=== PATIENT | male | born 1940 | race Caucasian/White ===

== ENCOUNTER 2017-11-26 21:36 | Inpatient (IN) | payer MEDICARE, OTHER ==
[2017-11-26 22:44] LABS: WHITE BLOOD COUNT 8.4 10^3/ul (4.8-10.8)
[2017-11-26 22:44] LABS: ADD MAN DIFF? NO; BASOPHIL # 0.1 10^3/ul (0.0-0.1); BASOPHILS % 0.6 % (0.0-2.0); EOSINOPHILS # 0.4 10^3/ul (0.0-0.5); EOSINOPHILS % 4.5 % (0.0-7.0); HEMATOCRIT 36.7 % (42.0-52.0); HEMOGLOBIN 11.5 g/dl (14.0-18.0); LYMPHOCYTES # 1.2 10^3/ul (0.8-2.9); LYMPHOCYTES % 14.4 % (15.0-51.0); MEAN CORPUSCULAR HEMOGLOBIN 30.7 pg (29.0-33.0); MEAN CORPUSCULAR HGB CONC 31.3 g/dl (32.0-37.0); MEAN CORPUSCULAR VOLUME 97.9 fl (82.0-101.0); MEAN PLATELET VOLUME 8.8 fl (7.4-10.4); MONOCYTE # 0.8 10^3/ul (0.3-0.9); MONOCYTES % 9.1 % (0.0-11.0); NEUTROPHILS % 70.9 % (39.0-77.0); PLATELET COUNT 194 10^3/UL (140-415); RED BLOOD COUNT 3.75 10^6/ul (4.70-6.10); RED CELL DISTRIBUTION WIDTH 14.6 % (11.5-14.5)
[2017-11-26] MEDS ORDERED: ACETAMINOPHEN 325 MG TAB PO (23:00)
[2017-11-26] MEDS ORDERED: ONDANSETRON 4 MG INJ IV (23:00)
[2017-11-26 23:05] LABS: ALANINE AMINOTRANSFERASE 25 IU/L (13-69); ALBUMIN 3.9 g/dl (3.3-4.9); ALBUMIN/GLOBULIN RATIO 1.39; ALKALINE PHOSPHATASE 61 IU/L (42-121); ANION GAP 15 (8-16); ASPARTATE AMINO TRANSFERASE 23 IU/L (15-46); BLOOD UREA NITROGEN 18 mg/dl (7-20); CALCIUM 9.2 mg/dl (8.4-10.2); CARBON DIOXIDE 27 mmol/L (21-31); CHLORIDE 114 mmol/L (97-110); CREATININE 1.03 mg/dl (0.61-1.24); GLUCOSE 103 mg/dl (70-220); POTASSIUM 4.3 mmol/L (3.5-5.1); SODIUM 152 mmol/L (135-144); TOTAL PROTEIN 6.7 g/dl (6.1-8.1)
[2017-11-26 23:06] LABS: ACETAMINOPHEN < 10.0 ug/ml (10.0-30.0); ETHANOL < 10.0 mg/dl; SALICYLATE < 1.0 mg/dl (5.0-30.0)
[2017-11-27] MEDS: HALOPERIDOL 5 MG INJ IM (01:58)
[2017-11-27] MEDS ORDERED: ACETAMINOPHEN 325 MG TAB PO (05:30)
[2017-11-27] MEDS ORDERED: NACL 0.9% 3 ML SYG IV (05:30)
[2017-11-27] MEDS ORDERED: ALBUTEROL/IPRATROPIUM (NEB) 3 ML AMP HHN (05:30)
[2017-11-27] MEDS ORDERED: ONDANSETRON 4 MG INJ IV (05:30)
[2017-11-27] MEDS ORDERED: ZOLPIDEM 5 MG TAB PO (05:30)
[2017-11-27 06:30] LABS: ADD MAN DIFF? NO
[2017-11-27 06:44] LABS: BASOPHILS % 0.8 % (0.0-2.0); EOSINOPHILS # 0.4 10^3/ul (0.0-0.5); EOSINOPHILS % 6.9 % (0.0-7.0); HEMATOCRIT 32.4 % (42.0-52.0); HEMOGLOBIN 10.4 g/dl (14.0-18.0); LYMPHOCYTES # 1.6 10^3/ul (0.8-2.9); LYMPHOCYTES % 29.6 % (15.0-51.0); MEAN CORPUSCULAR HEMOGLOBIN 31.5 pg (29.0-33.0); MEAN CORPUSCULAR HGB CONC 32.1 g/dl (32.0-37.0); MEAN CORPUSCULAR VOLUME 98.2 fl (82.0-101.0); MEAN PLATELET VOLUME 9.3 fl (7.4-10.4); MONOCYTE # 0.6 10^3/ul (0.3-0.9); MONOCYTES % 11.3 % (0.0-11.0); NEUTROPHIL # 2.7 10^3/ul (1.6-7.5); NEUTROPHILS % 50.8 % (39.0-77.0); PLATELET COUNT 177 10^3/UL (140-415); RED CELL DISTRIBUTION WIDTH 14.5 % (11.5-14.5)
[2017-11-27 06:44] LABS: WHITE BLOOD COUNT 5.3 10^3/ul (4.8-10.8)
[2017-11-27 07:15] LABS: ALANINE AMINOTRANSFERASE 26 IU/L (13-69); ALBUMIN 3.2 g/dl (3.3-4.9); ALBUMIN/GLOBULIN RATIO 1.23; ALKALINE PHOSPHATASE 57 IU/L (42-121); ANION GAP 10 (8-16); ASPARTATE AMINO TRANSFERASE 19 IU/L (15-46); BLOOD UREA NITROGEN 18 mg/dl (7-20); CARBON DIOXIDE 30 mmol/L (21-31); CHLORIDE 111 mmol/L (97-110); CREATININE 0.84 mg/dl (0.61-1.24); GLUCOSE 88 mg/dl (70-220); PHOSPHORUS 4.5 mg/dl (2.5-4.9); POTASSIUM 4.2 mmol/L (3.5-5.1); SODIUM 147 mmol/L (135-144); TOTAL PROTEIN 5.8 g/dl (6.1-8.1)
[2017-11-27] MEDS: ASPIRIN (EC) 81 MG TAB PO (08:33)
[2017-11-27] MEDS: DOCUSATE SODIUM 100 MG CAP PO (08:33)
[2017-11-27] MEDS: PANTOPRAZOLE (EC) 40 MG TAB PO (08:33)
[2017-11-27] MEDS: BUPROPION (SR) 100 MG TAB PO ×2 (08:34→20:19)
[2017-11-27] MEDS: VENLAFAXINE (XR) 75 MG CAP PO ×2 (08:37→20:19)
[2017-11-27] MEDS: GABAPENTIN 300 MG CAP PO ×3 (08:37→20:19)
[2017-11-27] MEDS: LORAZEPAM 0.5 MG TAB PO ×2 (08:37→20:19)
[2017-11-27] MEDS: MELOXICAM 7.5 MG TAB PO (08:37)
[2017-11-27] MEDS: AMLODIPINE 5 MG TAB PO (08:38)
[2017-11-27] MEDS: LOSARTAN 25 MG TAB PO (08:38)
[2017-11-27] MEDS ORDERED: HALOPERIDOL 5 MG INJ IM (10:00)
[2017-11-27] MEDS: morphine 2 MG INJ IV ×2 (11:28→21:44)
[2017-11-27] MEDS: TAMSULOSIN (SR) 0.4 MG CAP PO (20:19)
[2017-11-28 00:59] LABS: ADD UMIC YES; UR ASCORBIC ACID NEGATIVE (NEGATIVE); UR BILIRUBIN (Dip) NEGATIVE (NEGATIVE); UR BLOOD (Dip) NEGATIVE (NEGATIVE); UR CLARITY SLIGHTLY CLOUDY (CLEAR); UR COLOR YELLOW (YELLOW); UR GLUCOSE (Dip) NEGATIVE (NEGATIVE); UR KETONES (Dip) TRACE mg/dL (NEGATIVE); UR LEUKOCYTE ESTERASE (Dip) 1+ Leu/ul (NEGATIVE); UR NITRITE (Dip) NEGATIVE (NEGATIVE); UR RBC 1 /HPF (0-5); UR TOTAL PROTEIN (Dip) NEGATIVE (NEGATIVE); UR UROBILINOGEN (Dip) NEGATIVE (NEGATIVE); UR WBC 10 /HPF (0-5)
[2017-11-28 02:52] LABS: BENZODIAZEPINES Negative (NEGATIVE); CANNABINOIDS Positive (NEGATIVE); COCAINE Negative (NEGATIVE); OPIATES Positive (NEGATIVE)
[2017-11-28 02:55] LABS: AMPHETAMINE/METHAMPHETAMINE Negative (NEGATIVE); BARBITURATES Negative (NEGATIVE)
[2017-11-28 06:26] LABS: ADD MAN DIFF? NO
[2017-11-28 06:32] LABS: WHITE BLOOD COUNT 6.3 10^3/ul (4.8-10.8)
[2017-11-28 06:32] LABS: BASOPHILS % 0.5 % (0.0-2.0); EOSINOPHILS # 0.4 10^3/ul (0.0-0.5); EOSINOPHILS % 6.2 % (0.0-7.0); HEMATOCRIT 31.8 % (42.0-52.0); HEMOGLOBIN 10.2 g/dl (14.0-18.0); LYMPHOCYTES # 1.8 10^3/ul (0.8-2.9); LYMPHOCYTES % 27.6 % (15.0-51.0); MEAN CORPUSCULAR HEMOGLOBIN 31.1 pg (29.0-33.0); MEAN CORPUSCULAR HGB CONC 32.1 g/dl (32.0-37.0); MEAN PLATELET VOLUME 9.3 fl (7.4-10.4); MONOCYTE # 0.7 10^3/ul (0.3-0.9); MONOCYTES % 11.7 % (0.0-11.0); NEUTROPHIL # 3.4 10^3/ul (1.6-7.5); NEUTROPHILS % 53.8 % (39.0-77.0); PLATELET COUNT 174 10^3/UL (140-415); RED BLOOD COUNT 3.28 10^6/ul (4.70-6.10); RED CELL DISTRIBUTION WIDTH 14.2 % (11.5-14.5)
[2017-11-28 07:11] LABS: ANION GAP 13 (8-16); BLOOD UREA NITROGEN 20 mg/dl (7-20); CALCIUM 8.7 mg/dl (8.4-10.2); CARBON DIOXIDE 30 mmol/L (21-31); CHLORIDE 108 mmol/L (97-110); CREATININE 0.84 mg/dl (0.61-1.24); GLUCOSE 86 mg/dl (70-220); MAGNESIUM 1.9 mg/dl (1.7-2.5); PHOSPHORUS 4.8 mg/dl (2.5-4.9); POTASSIUM 4.1 mmol/L (3.5-5.1); SODIUM 147 mmol/L (135-144)
[2017-11-28] MEDS: DOCUSATE SODIUM 100 MG CAP PO (09:30)
[2017-11-28] MEDS: MELOXICAM 7.5 MG TAB PO (09:30)
[2017-11-28] MEDS: GABAPENTIN 300 MG CAP PO ×3 (09:30→21:05)
[2017-11-28] MEDS: PANTOPRAZOLE (EC) 40 MG TAB PO (09:30)
[2017-11-28] MEDS: ASPIRIN (EC) 81 MG TAB PO (09:30)
[2017-11-28] MEDS: BUPROPION (SR) 100 MG TAB PO ×2 (09:30→21:06)
[2017-11-28] MEDS: AMLODIPINE 5 MG TAB PO (09:31)
[2017-11-28] MEDS: VENLAFAXINE (XR) 75 MG CAP PO ×2 (09:31→21:06)
[2017-11-28] MEDS: LOSARTAN 25 MG TAB PO (09:31)
[2017-11-28] MEDS: LORAZEPAM 0.5 MG TAB PO ×2 (09:31→21:06)
[2017-11-28] MEDS: CEFTRIAXONE 1 GM/50 ML (PMX) 50 ML IVPB (09:31)
[2017-11-28] MEDS: morphine 2 MG INJ IV ×3 (09:32→21:05)
[2017-11-28] MEDS: TAMSULOSIN (SR) 0.4 MG CAP PO (21:05)
[2017-11-28] MEDS: RISPERIDONE 0.25 MG TAB PO (21:06)
[2017-11-29 05:48] LABS: WHITE BLOOD COUNT 4.5 10^3/ul (4.8-10.8)
[2017-11-29 05:48] LABS: HEMATOCRIT 30.9 % (42.0-52.0); HEMOGLOBIN 10.1 g/dl (14.0-18.0); MEAN CORPUSCULAR HEMOGLOBIN 31.6 pg (29.0-33.0); MEAN CORPUSCULAR HGB CONC 32.7 g/dl (32.0-37.0); MEAN CORPUSCULAR VOLUME 96.6 fl (82.0-101.0); MEAN PLATELET VOLUME 9.1 fl (7.4-10.4); PLATELET COUNT 156 10^3/UL (140-415); POSITIVE DIFF @See below; RED CELL DISTRIBUTION WIDTH 14.3 % (11.5-14.5)
[2017-11-29 05:54] LABS: ADD MAN DIFF? YES
[2017-11-29 06:33] LABS: ANION GAP 10 (8-16); BLOOD UREA NITROGEN 16 mg/dl (7-20); CALCIUM 8.8 mg/dl (8.4-10.2); CARBON DIOXIDE 32 mmol/L (21-31); CHLORIDE 108 mmol/L (97-110); CREATININE 0.81 mg/dl (0.61-1.24); GLUCOSE 84 mg/dl (70-220); MAGNESIUM 1.9 mg/dl (1.7-2.5); PHOSPHORUS 4.6 mg/dl (2.5-4.9); POTASSIUM 4.3 mmol/L (3.5-5.1); SODIUM 146 mmol/L (135-144)
[2017-11-29] MEDS: CEFTRIAXONE 1 GM/50 ML (PMX) 50 ML IVPB (09:01)
[2017-11-29] MEDS: GABAPENTIN 300 MG CAP PO ×2 (09:02→12:40)
[2017-11-29] MEDS: RISPERIDONE 0.25 MG TAB PO (09:02)
[2017-11-29] MEDS: VENLAFAXINE (XR) 75 MG CAP PO (09:02)
[2017-11-29] MEDS: LORAZEPAM 0.5 MG TAB PO (09:02)
[2017-11-29] MEDS: ASPIRIN (EC) 81 MG TAB PO (09:02)
[2017-11-29] MEDS: BUPROPION (SR) 100 MG TAB PO (09:02)
[2017-11-29] MEDS: MELOXICAM 7.5 MG TAB PO (09:02)
[2017-11-29] MEDS: PANTOPRAZOLE (EC) 40 MG TAB PO (09:02)
[2017-11-29] MEDS: DOCUSATE SODIUM 100 MG CAP PO (09:02)
[2017-11-29] MEDS: LOSARTAN 25 MG TAB PO (09:03)
[2017-11-29] MEDS: AMLODIPINE 5 MG TAB PO (09:03)
[2017-11-29] MEDS: morphine 2 MG INJ IV ×2 (09:04→13:02)
[2017-11-29 09:48] LABS: BAND NEUTROPHILS #M 0.1 10^3/ul (0.0-0.6); BAND NEUTROPHILS % (M) 4 % (0-4); BASOPHIL #M 0.1 10^3/ul (0.0-0.0); BASOPHILS % (M) 4 % (0-2); EOSINOPHILS % (M) 13 % (0-7); ERYTHROBLAST% (NRBC) (M) 1 % (0-0); GIANT THROMBO% (M) 1 % (0-0); LYMPHOCYTES #M 1.2 10^3/ul (0.8-2.9); LYMPHOCYTES % (M) 27 % (15-51); MONOCYTE #M 0.3 10^3/ul (0.3-0.9); MONOCYTES % (M) 7 % (0-11); PLATELET ESTIMATE NORMAL; REACTIVE LYMPHOCYTES #M 0.5 10^3/ul (0.0-0.0); REACTIVE LYMPHOCYTES% (M) 12 % (0-0); SEG NEUT #M 1.5 10^3/ul (1.6-7.5); SEGMENTED NEUTROPHILS (M) % 33 % (39-77); SMUDGE%M 9 % (0-0)
[2017-11-29] MEDS: ENOXAPARIN 40 MG/0.4 ML SYG SC (12:54)
[2017-11-29] MEDS ORDERED: morphine LIQ (10 MG/5 ML) CUP PO ×2 (14:00)
== END 2017-11-29 17:05 | disposition home or self-care (01) | DRG 690 ==
LOC: E/R 21:36 → MS2 23:01
DX: N39.0 Urinary tract infection, site not specified (principal); Z99.81 Dependence on supplemental oxygen; J44.9 Chronic obstructive pulmonary disease, unspecified; D64.9 Anemia, unspecified; F99 Mental disorder, not otherwise specified; I10 Essential (primary) hypertension; F12.10 Cannabis abuse, uncomplicated; N40.0 Benign prostatic hyperplasia without lower urinary tract symptoms; Z59.0 Homelessness; F32.9 Major depressive disorder, single episode, unspecified
CPT/HCPCS: 36415; 80048; 80053; 80306; 80307; 81001; 83735; 84100; 85025; 99217; 99285-25